=== PATIENT | female | born 2000 | race Caucasian/White ===

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

== ENCOUNTER 2019-06-07 23:21 | Emergency (ER) | payer OTHER ==
[~2019-06-07] VITALS: Ht 160 cm; Wt 91.5 kg
[~2019-06-07 23:21] MED LIST: ACET500C5 PO; CEPH-443 PO; FER325 PO; HYDR-4011 PO; IBUP-1542 PO; PREN-93 PO
[2019-06-07 23:23] VITALS: Ht 160 cm; Wt 91.5 kg
[2019-06-08] MEDS ORDERED: ACETAMINOPHEN 500 MG TAB PO STA (00:15)
[2019-06-08 03:25] VITALS: BP 128/87; PULSE 81; RESP 18
== END 2019-06-08 03:30 | disposition home or self-care (01) ==
LOC: FTE 23:21
DX: O26.892 Other specified pregnancy related conditions, second trimester (principal); R10.2 Pelvic and perineal pain; O99.012 Anemia complicating pregnancy, second trimester; D64.9 Anemia, unspecified; O23.42 Unspecified infection of urinary tract in pregnancy, second trimester; Z3A.20 20 weeks gestation of pregnancy
CPT/HCPCS: 76805; 80053; 81001; 82150; 83690; 84702; 85025; 86900; 86901; 87086; Z7502; Z7610